=== PATIENT | male | born 1970 | race Caucasian/White ===

== ENCOUNTER 2021-07-30 12:08 | Emergency (ER) | payer OTHER, SELFPAY ==
[2021-07-30 12:25] VITALS: BP 134/85; PULSE 93; RESP 16; TEMP 36.1; O2SAT 98
--- NOTE | 2021-07-30 13:59 | ED.SKABFB ---
HPI - Skin/Abscess/Foreign Bdy General Chief complaint: Skin/Abscess/Foreign Body Stated complaint: rash Time Seen by Provider: 07/30/21 13:20 Source: patient, RN notes reviewed and old records reviewed Mode of arrival: ambulatory Limitations: no limitations History of Present Illness HPI narrative: 51 YEAR OLD MALE WHO PRESENTS TO [facility] C[facility] WITH COMPLAINTS OF WOUND TO THE LEFT SIDE OF HIS TEMPORAL AREA THAT IS EXTENDING TO LEFT SIDE OF HIS FOREHEAD. HE STATES IT STARTED ALONG HIS HAIRLINE A FEW DAYS AGO AND NOW FOR PAST DAY IT HAS EXTENDED TO ACROSS FOREHEAD. IT HAS RED IRREGULAR PATTERN WITH RED BORDER AND MOIST PINK CENTER WITH OOZING DRAINAGE NOTED.AREA MEASURE 7.5CM BY 3.5CM AND IS TENDER, HAS BEEN CLEANING WITH ANTIBACTERIAL SOAP AND APPLYING NEOSPORIN OINTMENT. HE STATES THAT HE HAD AN AREA ON HIS LOWER CHEST ON RIGHT SIDE WHICH STARTED ABOUT 2-3 WEEKS AGO THAT IS GETTING BETTER IS ABOUT 1CM DIAMETER WITH PINK CENTER NONDRAINING LESION. PATIENT DENIES ANY FEVERS CHILLS OR SWEATS DENIES ANY OTHER SYMPTOMS. MD complaint: rash and lesion Related Data Allergies Allergy/AdvReac Type Severity Reaction Status Date / Time No Known Allergies Allergy Verified 07/30/21 12:50 Review of Systems Review of Systems: CONSTITUTIONAL: Denies fever, chills, or sweats. EYES: Denies visual changes, redness, or discharge. ENT: Denies rhinorrhea, congestion, sore throat, or otalgia. CARDIOVASCULAR: Denies chest pain, palpitations, or edema. RESPIRATORY: Denies cough or dyspnea. GASTROINTESTINAL: Denies abdominal pain, nausea, vomiting, or diarrhea. GENITOURINARY: Denies dysuria or hematuria. SKN:POSITIVE FOR LESION TO LOWER CHEST RIGHT SIDE AND TO LEFT TEMPORAL AND FOREHEAD AREA MUSCULOSKELETAL: Denies back pain, joint pain, or myalgia. NEUROLOGIC: Denies headache, numbness, or weakness. PSYCHIATRIC: Denies anxiety or depression. All systems reviewed & are unremarkable except as noted in HPI and below PMFSH Past Medical History Medical History (Updated 08/05/21 @ 19:44 by Monet Osuna NP) No pertinent past medical history Surgical History Surgical History (Updated 08/05/21 @ 19:38 by Monet Osuna NP) No pertinent past surgical history Family History Family History (Updated 08/05/21 @ 19:39 by Monet Osuna NP) Other No pertinent family history in first degree relatives Social History Social History (Updated 08/05/21 @ 19:39 by Monet Osuna NP) Smoking packs per day: 1 Smoking cigarettes per day: 20.0 Smoking status: Current every day smoker Alcohol intake: current Alcohol use details: SOCIAL Substance use type: does not use Living arrangements: with family Gender identity (if verbalized by the patient): Male Comments At time of signature, agree with nursing past medical, surgical, social and family history. There is no relevant family history pertinent to the presenting complaint Exam Narrative: GENERAL: Well-appearing, well-nourished, and in no acute distress. HEAD: Normocephalic, atraumatic. EYES: PERRLA and EOMI. ENT: Nares clear, no rhinorrhea or epistaxis. Mucous membranes moist.TM'S NORMAL, THROAT NORMAL NECK: Supple.NO LYMPHADENOPATHY CHEST: Clear to auscultation. No respiratory distress.SAO2 98% on room air HEART: Regular rate and rhythm. No murmur heard. Normal peripheral pulses. ABDOMEN: Soft, nontender, nondistended, normal active bowel sounds. EXTREMITIES: Normal range of motion. No edema. SKIN: Warm, dry, 1cm lower chest to right red with pink center lesion with no drainage. 7.5cm X3.5cm irregular area to left temporal area extending across forehead with red borders and pink oozing center tissue is painful, denies any fevers chills or sweats denies any itching to sites.. NEURO: No focal deficits. Alert and oriented x3. Course Vital Signs Vital signs: Vital Signs Temperature 36.1 C L 07/30/21 12:25 Pulse Rate 93 07/30/21 12:25 Respiratory Rate 16 07/30/21
== END 2021-07-30 14:19 | disposition home or self-care (01) ==
PROVIDERS: Emergency Provider Registered Nurse
DX: L02.213 Cutaneous abscess of chest wall (principal); L02.01 Cutaneous abscess of face; F17.210 Nicotine dependence, cigarettes, uncomplicated
CPT/HCPCS: 99213; G0463

== ENCOUNTER 2021-09-15 13:06 | Emergency (ER) | payer OTHER, SELFPAY ==
--- NOTE | 2021-09-15 13:13 | ED.SKABFB ---
HPI - Skin/Abscess/Foreign Bdy General Chief complaint: Skin/Abscess/Foreign Body Stated complaint: rash Time Seen by Provider: 09/15/21 13:13 Source: patient, RN notes reviewed and old records reviewed Mode of arrival: ambulatory Limitations: no limitations History of Present Illness HPI narrative: 51-year-old male presents to [facility] with redness and inflammation to the left temporal area up into his scalp. States he had something similar but it worse when he was seen about a month ago., Old records indicate he was seen here on July 30. Patient states that all the sores around his face and chest had cleared up with the Bactrim my prior 7. States that the sores to the side of his face appeared about a week ago has been trying to keep it clean and prevent it from getting worse but comes in today for antibiotics Patient denies any past medical or surgical history. Has not followed up with her primary care Related Data Allergies Allergy/AdvReac Type Severity Reaction Status Date / Time No Known Allergies Allergy Verified 07/30/21 12:50 Review of Systems Review of Systems: All systems reviewed & are unremarkable except as noted in HPI and below Constitutional: Constitutional: Reports no additional constitutional complaints, Denies chills and Denies fever(s) Eyes: Eyes: Reports no additional eye complaints ENT: Reports system reviewed and no additional complaints, except as documented Cardiovascular: Cardiovascular: Reports no additional cardiovascular complaints Respiratory: Respiratory: Reports no additional respiratory complaints Musculoskeletal: Musculoskeletal: Reports no additional musculoskeletal complaints Integumentary/Breasts: Skin/Breast: Reports as per HPI Neurologic: Reports system reviewed and no additional complaints, except as documented Psychiatric: Psychiatric: Reports no additional psychiatric complaints Allergic/Immunologic: Allergic/Immunologic: Reports no additional allergic/immunologic complaints PENDING SALE TO [facility] Past Medical History Medical History No pertinent past medical history Surgical History Surgical History No pertinent past surgical history Family History Family History Other No pertinent family history in first degree relatives Social History Social History Smoking packs per day: 1 Smoking cigarettes per day: 20.0 Smoking status: Current every day smoker Alcohol intake: current Alcohol use details: SOCIAL Substance use type: does not use Gender identity (if verbalized by the patient): Male Comments At the time of my signature, I reviewed and agree with the nursing past medical, surgical, social, and family history. There is no relevant family history pertinent to the patient complaint. Exam Const: General: healthy appearing, no acute distress and alert Nutritional Appearance: well nourished Orientation/consciousness: patient oriented x3 Limitations: no limitations HENMT: Head: normal to inspection Ears: external ears normal, TM's normal bilaterally and EAC's normal Eyes: Conjunctivae: conjunctivae normal Pupils: Equal, round and reactive pupils present Neck: Neck: normal visual inspection, no lymphadenopathy and no meningeal signs Chest: Chest palpation & inspection: normal inspection of the chest Resp: Effort & Inspection: normal respiratory effort Auscultation: clear to auscultation bilaterally Cardio: Rate: regular rate Rhythm: regular rhythm Skin: Wounds: wounds noted Other: Left temporal area, scalp Neuro: General: patient oriented x3, moves all extremities, no meningeal signs and no focal motor deficits Speech: normal speech Gait exam (Neuro): Normal gait present Extrem: General: normal to inspection Psych: Appearance: grossly normal and
[2021-09-15 13:14] VITALS: BP 153/86; PULSE 98; RESP 18; TEMP 36.2; O2SAT 100
== END 2021-09-15 13:36 | disposition home or self-care (01) ==
PROVIDERS: Emergency Provider Nurse Practitioner
DX: L30.9 Dermatitis, unspecified (principal); F17.210 Nicotine dependence, cigarettes, uncomplicated
CPT/HCPCS: 99213; G0463